=== PATIENT | female | born 1975 | race Caucasian/White ===

== ENCOUNTER 2017-07-27 22:33 | Emergency (ER) | payer BC ==
[~2017-07-27] VITALS: Ht 170.2 cm; Wt 113.0 kg
[2017-07-27 23:17] LABS: BASOPHILS % 0.6 % (0.0-2.0); HEMATOCRIT. 39.3 % (36.0-48.0); HEMOGLOBIN. 13.3 g/dL (12.0-16.0); MEAN CORPUSCULAR VOLUME 82.8 fL (81.0-99.0); MEAN PLATELET VOLUME 8.9 fl (7.4-10.4); MONOCYTES % 6.1 % (2.0-8.0); NEUTROPHILS % 77.3 % (40.0-76.0); PLATELET 174 x1000/uL (130-400); RED BLOOD CELL COUNT 4.75 mill/uL (4.2-5.4); RED CELL DISTRIBUTION WIDTH 13.5 % (11.6-14.6)
[2017-07-27 23:19] LABS: CHLORIDE 105 mEq/L (98-107)
[2017-07-27 23:31] LABS: T4 FREE 1.01 ng/dL (0.76-1.46)
[2017-07-28 00:37] LABS: CLARITY URINE CLEAR (CLEAR); COLOR URINE YELLOW (YELLOW); KETONES URINE NEGATIVE (NEGATIVE); LEUKOCYTE ESTERASE URINE NEGATIVE (NEGATIVE); NITRITE URINE NEGATIVE (NEGATIVE); OCCULT BLOOD URINE NEGATIVE (NEGATIVE); PROTEIN URINE TRACE (NEGATIVE); SPECIFIC GRAVITY URINE 1.022 (1.005-1.030)
[2017-07-28 01:30] VITALS: BP 130/80
== END 2017-07-28 01:30 | disposition left against medical advice (07) ==
LOC: ER 22:52
DX: R11.2 Nausea with vomiting, unspecified (principal); R42 Dizziness and giddiness; F41.9 Anxiety disorder, unspecified
CPT/HCPCS: 36415; 80053; 81003; 81025; 84439; 84443; 84484; 85025; 85379; 93005; 99285